=== PATIENT | female | born 1990 | race Caucasian/White ===

== ENCOUNTER 2016-07-27 20:02 | Emergency (ER) | payer OTHER ==
[2016-07-27 20:26] VITALS: BP 124/60; PULSE 87; TEMP 98.2; BMI 25.4
--- NOTE | 2016-07-27 21:00 | PDOC ---
History of Present Illness - General Chief Complaint: Rectal Bleed Stated Complaint: RECTAL BLEEDING Time Seen by Provider: 07/27/16 20:30 - History of Present Illness Initial Comments: 07/27/16 20:59 CHIEF COMPLAINT: "ulcerative colitis flare up" HISTORY OF PRESENT ILLNESS: 26 yo F with hx of ulcerative colitis and psoriasis presents to ED with complaint of "ulcerative colitis flare up. My intestines hurt everywhere." Patient was admitted to this hospital 2 months ago for same complaint; today patient states she has "the exact same thing except maybe worse. I don't think I ever realyl got better after being discharged. I think all the meds they gave me just masked the problem." She was previously followed by a GI doctor at [facility] until January but stopped with a lapse of insurance. She now is followed by Dr. Mckenna but states he has not been very available. She reports "I had to up my dose of Imuran myself because I kept calling him and never could get a hold of him." She states she was supposed to get a colonoscopy at the end of last month but did not go because she was unable to get off from work. She denies any nausea or vomiting, but states "I think I'm constipated - when it comes out it's regular stool but when I wipe it' s all blood. She states "I do not want a CT scan of my stomach, I know it's just going to be the same thing as before." No recent travel or sick contacts. PAST MEDICAL HISTORY: as per HPI FAMILY HISTORY: Denies SOCIAL HISTORY:Occupation: "work with intellectually disabled adults". Denies tobacco, alcohol, illicit drug use. SURGICAL HISTORY: Denies ALLERGIES: No known drug allergies REVIEW OF SYSTEMS General/Constitutional: Denies fever or chills. Denies weakness, weight change. HEENT: Denies change in vision. Denies ear pain or discharge. Denies sore throat. Cardiovascular: Denies chest pain or shortness of breath. Respiratory: Denies cough, wheezing, or hemoptysis. Gastrointestinal: Abdominal discomfort. Denies nausea, vomiting, diarrhea or constipation. Denies rectal bleeding. Genitourinary: Denies dysuria, frequency, or change in urination. Musculoskeletal: Denies joint or muscle swelling or pain. Denies neck or back pain. Skin and breasts: Denies rash or easy bruising. Neurologic: Denies headache, vertigo, loss of consciousness, or loss of sensation. PHYSICAL EXAM General Appearance: Well-appearing, appropriately dressed. No apparent distress , no intoxication. HEENT: EOMI, PERRLA, normal ENT inspection, normal voice, TMs normal, pharynx normal. No conjunctival pallor. No photophobia, scleral icterus. Neck: Supple. Trachea midline. No tenderness, rigidity, carotid bruit, stridor , lymphadenopathy, or thyromegaly. Respiratory/Chest: Lungs CTAB. No shortness of breath, chest tenderness, respiratory distress, accessory muscle use. No crackles, rales, rhonchi, stridor , wheezing, dullness Cardiovascular: RRR. S1, S2. No JVD, murmur, bradycardia, tachycardia. Vascular Pulses: Dorsalis-Pedis (R): 2+, Dorsalis-Pedis (L): 2+ Gastrointestinal/Abdominal: Normal bowel sounds. Abdomen soft, non-distended. No tenderness or rebound tenderness. No organomegaly, pulsatile mass, guarding , hernia, hepatomegaly, splenomegaly. Lymphatic: No adenopathy, tenderness. Musculoskeletal/Extremities: Normal inspection. FROM of all extremities, normal capillary refill. Pelvis Stable. No CVA tenderness. No tenderness to extremities, pedal edema, swelling, erythema or deformity. Integumentary: Appropriate color, dry, warm. No cyanosis, erythema, jaundice or rash Neurologic: weaver tire cord II-XII intact. Fully oriented, alert. Appropriate mood/affect. Motor strength 5/5. No appreciable EOM palsy, facial droop or sensory deficit. Past History - Past Medical History Allergies/Adverse Reactions: Allergies Allergy/AdvReac Type Severity Reaction Status Date / Time No Known Allergies Allergy Verified 07/27/16 20:23 Home Medications: Ambulatory Orders Azathioprine [Imuran -] 100 mg PO DAILY 07/27/16 Metronidazole [Flagyl -] 500 mg PO DAILY #14 tablet 07/28/16 Prednisone [Deltasone -] 10 mg PO ASDIR #30 tablet 07/28/16 Asthma: No Cancer: No Cardiac Disorders: No Diabetes: No GI Disorders: Yes (Crohn's) HTN: No Seizures: No Thyroid Disease: No Other medical history: psoriasis - Immunization History Immunization Up to Date: Yes - Psycho/Social/Smoking Cessation Hx Anxiety: No Suicidal Ideation: No Smoking History: Never smoked Have you smoked in the past 12 months: No Number of Cigarettes Smoked Daily: 10 Information on smoking cessation initiated: Yes 'Breaking Loose' booklet given: 05/08/16 Hx Alcohol Use: No Drug/Substance Use Hx: No Substance Use Type: None Hx Substance Use Treatment: No *Physical Exam - Vital Signs Last Vital Signs Temp Pulse Resp BP Pulse Ox 98.2 F 87 18 124/60 99 07/27/16 20:23 07/27/16 20:23 07/27/16 20:23 07/27/16 20:23 07/27/16 20:23 ED Treatment Course - LABORATORY CBC & Chemistry Diagram: 07/27/16 21:10 07/27/16 23:15 Medical Decision Making - Medical Decision Making 07/28/16 05:35 26 yo F with hx of ulcerative colitis presents to ED with abdominal pain and rectal bleeding x 3 weeks. -CBC, CMP, serum preg -Stool occult blood Labs: WBC 14.4, guaic negatiev Patient CMP hemolyzed. Reordered, awaiting results. Patient CMP hemolyzed again. Reordered again. Awaiting results. -Metronidazole 500 mg IVPB -prednisone 40 mg po CMP unremarkable. Patient is stable at this time. Will discharge to home with close f/u with GI. -Metronidazole 500 mg po bid sent to pharm -Prednisone 30 mg taper po sent to pharm Advised patient to take medications as prescribed. Advised patient to follow up with GI this week for colonoscopy and of signs and symptoms for return to ED. Patient verbalized understanding and agrees to plan. *DC/Admit/Observation/Transfer Diagnosis at time of Disposition: Exacerbation of ulcerative colitis Qualifiers: Digestive disease complication type: with rectal bleeding Qualified Code(s): K51.911 - Ulcerative colitis, unspecified with rectal bleeding - Discharge Dispostion Disposition: HOME Condition at time of disposition: Stable Admit: No - Prescriptions Prescriptions: Prednisone [Deltasone -] 10 mg PO ASDIR #30 tablet Metronidazole [Flagyl -] 500 mg PO DAILY #14 tablet - Referrals Referrals: Shahriar Valerio MD [Primary Care Provider] - - Patient Instructions Printed Discharge Instructions: DI for Rectal Bleeding, DI for Ulcerative Colitis Additional Instructions: As discussed, please take medications as prescribed and follow up with GI as soon as possible. If you experience any fever, chills, nausea, vomiting, diarrhea, increased rectal bleeding, become dizzy or short of breath, or experience any new or worsening symptoms, please return to the ER immediately. - Post Discharge Activity
[2016-07-27 21:24] LABS: BASOPHIL 0.7 % (0-2.0); EOSINOPHIL 1.4 % (0-4.5); MCH 29.3 pg (25.7-33.7); MCHC 33.1 g/dl (32.0-36.0); MEAN CELL VOLUME 88.4 fl (80-96); MEAN PLT VOLUME 9.2 fl (7.5-11.1); NEUTROPHILS 67.3 % (42.8-82.8); PLATELET COUNT 395 K/MM3 (134-434); RDW 13.8 % (11.6-15.6); WHITE BLOOD COUNT 14.4 K/mm3 (4.0-10.0)
[2016-07-27 21:42] LABS: INR 1.05 (0.82-1.09); PROTHROMBIN TIME (PATIENT) 11.6 SEC (9.98-11.88)
[2016-07-27] MEDS ORDERED: predniSONE 20 MG TABLET (UD) PO ONE (23:35)
[2016-07-27] MEDS ORDERED: METRONIDAZOLE 500 MG PREMIXED 100 ML IVPB ONE ×2 (23:36→23:42)
[2016-07-27] MEDS ORDERED: predniSONE 20 MG TABLET (UD) ONE (23:42)
[2016-07-28 00:06] LABS: ALBUMIN 4.2 g/dl (3.4-5.0); ANION GAP 10 (8-16); BILIRUBIN,TOTAL 0.4 mg/dL (0.2-1.0); CALCIUM 8.9 mg/dL (8.5-10.1); CO2 26 mmol/L (21-32); CREATININE 0.6 mg/dL (0.55-1.02); GLUCOSE,RANDOM 97 mg/dL (74-106); SGOT/AST 13 U/L (15-37); SGPT/ALT 27 U/L (12-78); TOT PROT 7.3 g/dl (6.4-8.2)
[2016-07-28 00:07] LABS: ALK PHOS 98 U/L (45-117)
[2016-07-28] MEDS ORDERED: predniSONE 20 MG TABLET (UD) ONE (00:10)
== END 2016-07-28 00:42 | disposition home or self-care (01) ==
LOC: JER 20:02
DX: K51.911 Ulcerative colitis, unspecified with rectal bleeding (principal)
CPT/HCPCS: 36415; 80053; 82272; 84703; 85025; 85610; 96365; 99283-25

== ENCOUNTER 2017-10-03 08:07 | Emergency (ER) | payer OTHER ==
[2017-10-03 08:12] VITALS: TEMP 98.1; BMI 25.0
[2017-10-03] MEDS ORDERED: ONDANSETRON 4 MG/2 ML VIAL IVPUSH ONE (08:53)
[2017-10-03] MEDS ORDERED: SODIUM CHLORIDE 1,000 ML IV STA ×2 (08:53→10:59)
--- NOTE | 2017-10-03 09:18 | PDOC ---
History of Present Illness - General Chief Complaint: Nausea/Vomiting Stated Complaint: NAUSEA/VOMITING Time Seen by Provider: 10/03/17 08:42 History Source: Patient Exam Limitations: No Limitations - History of Present Illness Initial Comments: 10/03/17 09:01 Patient is a 27F with history of chron's disease, psoriasis, RA here today complaining of nausea, vomiting and diarrhea since 1am this morning. Patient states that her daughter had an illness where she had several episodes of vomiting that resolved after about 12 hours and this illness has been running through her daughters school. Patient denies abdominal pain, and states that this does not feel like one of her chron's flairs. Denies fevers, chills. States that she has small amount of blood in vomit and did not see any blood in stool. Past History - Past Medical History Allergies/Adverse Reactions: Allergies Allergy/AdvReac Type Severity Reaction Status Date / Time No Known Allergies Allergy Verified 10/03/17 08:36 Home Medications: Ambulatory Orders NK [No Known Home Medication] 10/03/17 Asthma: No Cancer: No Cardiac Disorders: No COPD: No Diabetes: No GI Disorders: Yes (Crohn's) HTN: No Seizures: No Thyroid Disease: No - Immunization History Immunization Up to Date: Yes - Suicide/Smoking/Psychosocial Hx Smoking History: Never smoked Have you smoked in the past 12 months: No Number of Cigarettes Smoked Daily: 10 'Breaking Loose' booklet given: 05/08/16 Hx Alcohol Use: No Drug/Substance Use Hx: No Substance Use Type: None Hx Substance Use Treatment: No Review of Systems - Review of Systems Comments:: 10/03/17 10:27 GENERAL/CONSTITUTIONAL: No fever or chills. No weakness. HEAD, EYES, EARS, NOSE AND THROAT: No change in vision. No sore throat. CARDIOVASCULAR: No chest pain or shortness of breath RESPIRATORY: No cough, wheezing, or hemoptysis. GASTROINTESTINAL: Positive for nausea, vomiting, diarrhea. GENITOURINARY: No dysuria, frequency, or change in urination. MUSCULOSKELETAL: No joint or muscle swelling or pain. No neck or back pain. SKIN: No rash NEUROLOGIC: No headache, vertigo, loss of consciousness, or change in strength/ sensation. ALLERGIC/IMMUNOLOGIC: No hives or skin allergy. *Physical Exam - Vital Signs Last Vital Signs Temp Pulse Resp BP Pulse Ox 98.1 F 110 H 20 109/50 99 10/03/17 08:09 10/03/17 08:09 10/03/17 08:09 10/03/17 08:09 10/03/17 08:09 - Physical Exam Comments: 10/03/17 10:27 GENERAL: Awake, alert, and fully oriented, in no acute distress HEAD: No signs of trauma, normocephalic, atraumatic EYES: PERRLA, EOMI, sclera anicteric, conjunctiva clear ENT: Auricles normal inspection, hearing grossly normal, nares patent, oropharynx clear without exudates. Dry mucosa NECK: Normal ROM, supple, no lymphadenopathy, JVD, or masses LUNGS: No distress, speaks full sentences, clear to auscultation bilaterally HEART: Regular rate and rhythm, normal S1 and S2, no murmurs, rubs or gallops, peripheral pulses normal and equal bilaterally. ABDOMEN: Soft, nontender, normoactive bowel sounds. No guarding, no rebound. No masses EXTREMITIES: Normal inspection, Normal range of motion, no edema. No clubbing or cyanosis. NEUROLOGICAL: Cranial nerves II through XII grossly intact. Normal speech, normal gait, no focal sensorimotor deficits SKIN: Warm, Dry, normal turgor, no rashes or lesions noted. ED Treatment Course - LABORATORY CBC & Chemistry Diagram: 10/03/17 09:15 10/03/17 09:15 Medical Decision Making - Medical Decision Making 10/03/17 10:27 Patient is 27F with history of chron's, psoriasis, ra here today complaining of vomiting and diarrhea. Vital signs notable for tachycardia. PE notable for no abdominal tenderness and dry mucosa. Will evaluate with abdominal labs, urine . Will treat with fluids and zofran. 10/03/17 11:28 Laboratory Tests 10/03/17 10/03/17 10/03/17 09:15 09:15 10:35 WBC 10.3 H Hgb 13.4 Hct 38.6 Plt Count 302 D BUN 15 Creatinine 0.6 Total Bilirubin 1.6 H D Urine Nitrite Negative Ur Leukocyte Esterase Negative Urine HCG, Qual 10/03/17 10:35 WBC Hgb Hct Plt Count BUN Creatinine Total Bilirubin Urine Nitrite Ur Leukocyte Esterase Urine HCG, Qual Negative CBC shows small leukocytosis. CMP reassuring. UA negative. Upreg negative. Patient now tolerating PO, asking to go home. Will discharge with referral for PCP and return precautions. *DC/Admit/Observation/Transfer Diagnosis at time of Disposition: Gastroenteritis - Discharge Dispostion Disposition: HOME Condition at time of disposition: Good Admit: No - Referrals - Patient Instructions Printed Discharge Instructions: DI for Viral Gastroenteritis -- Adult - Post Discharge Activity Forms/Work/School Notes: Back to Work
[2017-10-03] MEDS ORDERED: ONDANSETRON 4 MG/2 ML VIAL ONE (09:21)
[2017-10-03 09:24] LABS: BASO % 0.1 % (0-2.0); EOS % 0.6 % (0-4.5); HEMATOCRIT 38.6 % (32.4-45.2); HEMOGLOBIN 13.4 GM/dL (10.7-15.3); LYMPH % 3.5 % (8-40); MCH 35.9 pg (25.7-33.7); MCHC 34.7 g/dl (32.0-36.0); MEAN CELL VOLUME 103.5 fl (80-96); MEAN PLT VOLUME 7.8 fl (7.5-11.1); MONO % 2.2 % (3.8-10.2); NEUT % 93.6 % (42.8-82.8); PLATELET COUNT 302 K/MM3 (134-434); RBC 3.73 M/mm3 (3.60-5.2); RDW 13.9 % (11.6-15.6); WHITE BLOOD COUNT 10.3 K/mm3 (4.0-10.0)
[2017-10-03] MEDS ORDERED: FAMOTIDINE 20 MG/50 ML IVPB 20 MG/50 ML MG IVPB ONE ×2 (09:29→09:30)
[2017-10-03 09:54] LABS: ALBUMIN 4.1 g/dl (3.4-5.0); ANION GAP 3 (8-16); BLOOD UREA NITROGEN 15 mg/dL (7-18); CALCIUM 8.9 mg/dL (8.5-10.1); CHLORIDE 106 mmol/L (98-107); CO2 28 mmol/L (21-32); GLUCOSE,RANDOM 106 mg/dL (74-106); POTASSIUM 4.5 mmol/L (3.5-5.1); SODIUM 137 mmol/L (136-145)
[2017-10-03 09:57] LABS: ALK PHOS 157 U/L (45-117); BILIRUBIN,TOTAL 1.6 mg/dL (0.2-1.0); CREATININE 0.6 mg/dL (0.55-1.02); SGOT/AST 28 U/L (15-37); SGPT/ALT 89 U/L (12-78); TOT PROT 7.5 g/dl (6.4-8.2)
[2017-10-03 10:58] LABS: URINE APPEARANCE SLCLOUDY; URINE BILIRUBIN NEGATIVE (<2.0 mg/dL); URINE BLOOD NEGATIVE (NEGATIVE); URINE COLOR DKYELLOW; URINE GLUCOSE (UA) NEGATIVE (NEGATIVE); URINE KETONE 1+ (NEGATIVE); URINE LEUK ESTERASE NEGATIVE (NEGATIVE); URINE NITRITE NEGATIVE (NEGATIVE); URINE PROTEIN NEGATIVE (NEGATIVE); URINE UROBILINOGEN NEGATIVE mg/dL (0.2-1.0)
--- NOTE | 2017-10-03 11:27 | PDOC ---
Attending Attestation - Resident Resident Name: Mik Claudio - ED Attending Attestation I have performed the following: I have examined & evaluated the patient, The case was reviewed & discussed with the resident, I agree w/resident's findings & plan, Exceptions are as noted - HPI HPI: 10/03/17 11:26 Ms Castanon is a 27-year-old female with a history of ulcerative colitis currently on Mercaptopurinol who presents emergency department with a complaint of nausea , vomiting, diarrhea. The patient states that her daughter has similar symptoms. Last night her symptoms began at a possibly one a.m., she had diarrhea every 15 minutes. She denies abdominal pain. She has also noted vomiting. Last episode of emesis, and diarrhea prior to arrival in the emergency department Patient's daughter apparently has something similar as well asmultiple members of her class - Physicial Exam PE: 10/03/17 11:27 GENERAL: The patient is in no acute distress. LUNGS: Breath sounds equal, clear to auscultation bilaterally. No wheezes, and no crackles. HEART:Regular rate and rhythm, normal S1 and S2 without murmur, rub or gallop. ABDOMEN: Soft, nontender to palpation, normoactive bowel sounds. No guarding, no rebound. EXTREMITIES: Normal range of motion, no edema. NEUROLOGICAL: Cranial nerves II through XII grossly intact. Normal speech. No focal neurological deficits. SKIN: Warm, Dry, normal turgor, no rashes or lesions noted. - Medical Decision Making 10/03/17 11:28 27-year-old female presenting to the emergency room with a complaint of jaw, vomiting, diarrhea. No abdominal pain. She has a history of ulcerative colitis, which complicates her presentation to the ER today. Upon my assessment, patient has absolutely no abdominal tenderness to palpation. She states this does not feel to her like her prior ulcerative colitis flares. She is tolerating by mouth. Will be discharged home. Patient asked to return to the emergency department for fevers, chills, worsening pain, any other concerns or complaints. Clinical impression: gastroenteritis, initial presentation
[2017-10-03 11:53] LABS: LIPASE 117 U/L (73-393)
[2017-10-03 12:01] VITALS: BP 106/63; PULSE 83
== END 2017-10-03 12:05 | disposition home or self-care (01) ==
LOC: JER 08:07
PROC: 3E0337Z Introduction of Electrolytic and Water Balance Substance into Peripheral Vein, Percutaneous Approach (ICD-10-PCS; principal; 2017-10-03)
PROC: 3E033GC Introduction of Other Therapeutic Substance into Peripheral Vein, Percutaneous Approach (ICD-10-PCS; 2017-10-03)
PROC: 3E033GC Introduction of Other Therapeutic Substance into Peripheral Vein, Percutaneous Approach (ICD-10-PCS; 2017-10-03)
DX: Z87.19 Personal history of other diseases of the digestive system (principal)
CPT/HCPCS: 36415; 80053; 81003; 83690; 84703; 85025; 99285-25; J7030

== ENCOUNTER 2019-03-10 20:24 | Emergency (ER) | payer BC, OTHER ==
[2019-03-10 20:32] VITALS: BP 122/61; PULSE 71; TEMP 98.3; BMI 25.0
--- NOTE | 2019-03-10 21:10 | PDOC ---
Documentation entered by Gómez Nam SCRIBE, acting as scribe for Rich Joe MD. Rich Joe MD: This documentation has been prepared by the Cyril laba Aiswarya, SCRIBE, under my direction and personally reviewed by me in its entirety. I confirm that the documentation accurately reflects all work, treatment, procedures, and medical decision making performed by me. History of Present Illness - General Chief Complaint: Injury Stated Complaint: HIT HEAD Time Seen by Provider: 03/10/19 20:30 History Source: Patient Exam Limitations: No Limitations - History of Present Illness Initial Comments: 03/10/19 21:07 Assessment and plan: This is 28-year-old female who hit her head on the corner of a dryer in the [facility]. Patient does have a small abrasion to the area. Patient did not pass out does not have a headache or any neurological complaints. Patient does feel anxious K she was reading on the Internet that she could go to sleep and I so she is having a small panic attack as a result of reading google on the Internet. Patient was reassured that she does not have a concussion that there is no need to have a CAT scan and that she can take Tylenol for the pain and go home. 03/10/19 21:13 The patient is a 28 year old female, with a significant PMH of Crohn's disease , who presents to the emergency department for evaluation of a head abrasion that occurred a few hours ago. The patient states she was at the [facility] when the door of the dryer hit her head. Patient notes a small abrasion to the left lateral temporal area and endorses associated symptoms of lightheadedness and SOB. She came to the ER for further evaluation because she read online she might have a concussion. The patient denies chest pain, shortness of breath, headache and dizziness.Denies fever, chills, nausea, vomit, diarrhea and constipation. PAST MEDICAL HISTORY: no significant history PAST SURGICAL HISTORY: no significant history FAMILY HISTORY: no pertinent history SOCIAL HISTORY: Pt lives with family and is employed. MEDICATIONS: reviewed ALLERGIES: As per nursing notes Adult ROS General: No fevers or chills, no weakness, no weight loss HEENT: No change in vision. No sore throat,. No ear pain CardioVascular: No chest pain or shortness of breath Respiratory:No cough, or wheezing. Gastrointestinal: no nausea, vomiting, diarrhea or constipation, No rectal bleeding Genitourinary: No dysuria, hematuria, or frequency Musculoskeletal: No joint or muscle pain or swelling Neurologic: No headache, vertigo, dizziness or loss of consciousness Psychiatric: nor depression Skin:+ head abrasion No rashes or easy bruising Endocrine: no increased thirst or abnormal weight change Allergic: no skin or latex allergy All other systems reviewed and normal Basic PE GENERAL: The patient is awake, alert, and fully oriented, in no acute distress. HEAD: +Small left superior lateral temporal abrasion with a 1 mm associated small contusion. No hematoma . No bony tenderness. EYES: Pupils equal, round and reactive to light, extraocular movements intact, sclera anicteric, conjunctiva clear. EXTREMITIES: Normal range of motion, no edema. NEUROLOGICAL: Normal speech, normal gait. PSYCH: Normal mood, normal affect. SKIN: Warm, Dry, normal turgor, no rashes or lesions noted. Past History - Past Medical History Allergies/Adverse Reactions: Allergies Allergy/AdvReac Type Severity Reaction Status Date / Time No Known Allergies Allergy Verified 10/03/17 08:36 Home Medications: Ambulatory Orders Mercaptopurine [Purinethol -] 100 mg PO DAILY 03/10/19 Asthma: No Cancer: No Cardiac Disorders: No COPD: No Diabetes: No GI Disorders: Yes (Crohn's) HTN: No Seizures: No Thyroid Disease: No - Immunization History Immunization Up to Date: Yes - Suicide/Smoking/Psychosocial Hx Smoking History: Never smoked Have you smoked in the past 12 months: No Number of Cigarettes Smoked Daily: 10 'Breaking Loose' booklet given: 05/08/16 Hx Alcohol Use: No Drug/Substance Use Hx: No Substance Use Type: None Hx Substance Use Treatment: No *Physical Exam - Vital Signs Last Vital Signs Temp Pulse Resp BP Pulse Ox 98.3 F 71 16 122/61 100 03/10/19 20:28 03/10/19 20:28 03/10/19 20:28 03/10/19 20:28 03/10/19 20:28 *DC/Admit/Observation/Transfer Diagnosis at time of Disposition: Forehead contusion Qualifiers: Encounter type: initial encounter Qualified Code(s): S00.83XA - Contusion of other part of head, initial encounter - Discharge Dispostion Disposition: HOME Condition at time of disposition: Stable Decision to Admit order: No - Referrals - Patient Instructions Additional Instructions: You can take Tylenol for the pain if needed Return to the emergency department immediately with ANY new, persistent or worsening symptoms. Continue any medications as previously prescribed by your physician. You should follow up with your primary doctor as soon as possible regarding today's emergency department visit. . Please make sure your doctor reviews the results of your emergency evaluation. Thank you for coming to the Emergency Department today for your care. It was a pleasure to see you today. Please note that your evaluation is INCOMPLETE until you follow-up with your doctor. - Post Discharge Activity
== END 2019-03-10 21:12 | disposition home or self-care (01) ==
LOC: FER 20:24
DX: S00.83XA Contusion of other part of head, initial encounter (principal); W22.03XA Walked into furniture, initial encounter; Y93.89 Activity, other specified; Y92.89 Other specified places as the place of occurrence of the external cause; F41.9 Anxiety disorder, unspecified; K50.90 Crohn's disease, unspecified, without complications
CPT/HCPCS: 99281-25

== ENCOUNTER 2020-03-04 22:05 | Emergency (ER) | payer BC ==
[2020-03-04 22:17] VITALS: BP 116/61; PULSE 76; TEMP 98.1; BMI 27.9
--- NOTE | 2020-03-04 22:25 | PDOC ---
History of Present Illness - General Chief Complaint: Pain, Acute Stated Complaint: fell hitting left elbow on rock Time Seen by Provider: 03/04/20 22:09 History Source: Patient Exam Limitations: No Limitations - History of Present Illness Initial Comments: 03/04/20 22:19 29 yo F h/o crohn's disease p/w abrasion and pain to L elbow sustained yesterday when [place]. States pain is improved with flexion of elbow and worse with extension. Denies any other injuries. States she cleaned with peroxide yesterday and today and applied a triple antibiotic cream. Came in today to make sure it was not infected because she has had cellulitis in the past 2/2 to a cut. No other complaints. Denies numbness or weakness in extremities. Reports tetanus is up to date. Past History - Medical History Allergies/Adverse Reactions: Allergies Allergy/AdvReac Type Severity Reaction Status Date / Time No Known Allergies Allergy Verified 03/04/20 22:07 Home Medications: Ambulatory Orders NK [No Known Home Medication] 03/04/20 Asthma: No Cancer: No Cardiac Disorders: No COPD: No Diabetes: No GI Disorders: Yes (Crohn's) HTN: No Seizures: No Thyroid Disease: No - Reproductive History Is Patient Now?: No - Immunization History Immunization Up to Date: Yes - Psycho-Social/Smoking History Smoking History: Never smoked Have you smoked in the past 12 months: No Number of Cigarettes Smoked Daily: 10 Information on smoking cessation initiated: No 'Breaking Loose' booklet given: 05/08/16 - Substance Abuse Hx (Audit-C & DAST Scrn) How often the patient has a drink containing alcohol: Monthly or less Score: In Men: 4 or > Positive; In Women: 3 or > Positive: 1 Screen Result (Pos requires Nsg. Audit-10AR): Negative In the last yr the pt used illegal drug/Rx for NonMed reason: No Score: Yes response is considered Positive: 0 Screen Result (Positive result requires Nsg. DAST-10): Negative Review of Systems - Review of Systems Able to Perform ROS?: Yes Comments:: 03/04/20 22:21 GENERAL/CONSTITUTIONAL: No fever or chills. No weakness. HEAD, EYES, EARS, NOSE AND THROAT: No change in vision. No ear pain or discharge. No sore throat. CARDIOVASCULAR: No chest pain or shortness of breath. RESPIRATORY: No cough, wheezing, or hemoptysis. GASTROINTESTINAL: No nausea, vomiting, diarrhea or constipation. GENITOURINARY: No dysuria, frequency, or change in urination. MUSCULOSKELETAL: +abrasion to L elbow No neck or back pain. SKIN: No rash. NEUROLOGIC: No headache, vertigo, loss of consciousness, or change in strength/sensation. ENDOCRINE: No increased thirst. No abnormal weight change. HEMATOLOGIC/LYMPHATIC: No anemia, easy bleeding, or history of blood clots. ALLERGIC/IMMUNOLOGIC: No hives or skin allergy *Physical Exam - Vital Signs Last Vital Signs Temp Pulse Resp BP Pulse Ox 98.1 F 76 16 116/61 99 03/04/20 22:09 03/04/20 22:09 03/04/20 22:09 03/04/20 22:09 03/04/20 22:09 - Physical Exam 03/04/20 22:22 GENERAL: Well appearing, in no acute distress HEENT: NCAT, conjunctiva not injected, MMM, EOMI NECK: Normal ROM, supple LUNGS: CTAB. Good air entry. No wheezes, No Rhonchi and no crackles HEART: RRR, + s1 s2, no murmurs, rubs or gallops ABDOMEN: Soft, nontender, normoactive bowel sounds. No guarding, no rebound. No masses BACK: no midline or paraspinal tenderness. EXTREMITIES: Warm and well perfused. No LE edema. FROM. No clubbing or cyanosis. Flexion/extension at elbows intact. no bony tenderness. NEUROLOGICAL: Aox3, Speech fluent, face symmetric, tongue/uvula midline. Sensation grossly intact to light touch. Ambulatory with steady gait. Strength i ntact. No focal deficits. SKIN: Warm, dry, normal turgor, no rashes. +abrasion to L elbow without active bleeding. no surrounding erythema or increased warmth, no ttp, no fluctuance Medical Decision Making - Medical Decision Making 03/04/20 22:25 29 yo F with abrasion to L elbow without any signs concerning for infection, FROM and no bony tenderness to suggest fracture. Plan: -bacitracin placed on wound -d/c with return precautions, recommend local wound care, f/u with PMD as needed This clinical encounter is taking place during a federal and state health care emergency attributable to the novel Reyes Virus pandemic. The [place] of the Department of Health and Human Services has declared, pursuant to the Public Health Service Act 319F-3 (42 U.S.C. 247d-6d), that a covered persons activities related to medical countermeasures against COVID-19 will be immune from liability under Federal and State law. Discharge - Discharge Information Problems reviewed: Yes Clinical Impression/Diagnosis: Abrasion of elbow Qualifiers: Encounter type: initial encounter Laterality: left Qualified Code(s): S50.312A - Abrasion of left elbow, initial encounter Condition: Stable Disposition: HOME - Follow up/Referral Referrals: Humberto Onofre MD [Primary Care Provider] - - Patient Discharge Instructions Patient Printed Discharge Instructions: DI for Abrasion Additional Instructions: You can apply bacitracin for a topical antibiotic to the area. Return to the ED for new or worsening symptoms. You should follow up with your PMD as needed. - Post Discharge Activity
== END 2020-03-04 22:31 | disposition home or self-care (01) ==
LOC: FER 22:05
DX: S50.312A Abrasion of left elbow, initial encounter (principal)
CPT/HCPCS: 99282-25